=== PATIENT | female | born 1980 | race African-American/Black ===

== ENCOUNTER 2025-04-12 15:13 | Emergency (ER) | payer MEDICAID ==
[~2025-04-12] VITALS: Ht 165.1 cm; Wt 61.0 kg
[2025-04-12 15:27] VITALS: O2SAT 100
[2025-04-12] MEDS: MAGNESIUM/ALUMINUM HYDROXIDE/SIMETHICONE 30ML UDC PO ONE (19:44)
[2025-04-12] MEDS ORDERED: FAMO-135 MT (19:49)
[2025-04-12 20:08] VITALS: BP 122/82; PULSE 62; RESP 16; TEMP 36.7; O2SAT 100
== END 2025-04-12 20:10 | disposition home or self-care (01) ==
LOC: ER 15:13
DX: R13.10 Dysphagia, unspecified (principal)
CPT/HCPCS: 71045; 99283